=== PATIENT | male | born 1945 | race Hispanic/Latino ===

== ENCOUNTER 2018-11-08 20:10 | Emergency (ER) | payer MEDICARE ==
[~2018-11-08] VITALS: Ht 175.3 cm; Wt 105.7 kg
--- OUTSIDE RECORDS SUMMARY | 2018-11-08 20:13 | XMS REPORT | Clinical Summary ---
Author Author [facility] Organization [facility] Address Unknown Phone Unavailable Care Team Providers Care Strickler Attendant Name Role Phone Asked, No Pcp PCP Unavailable Allergies Not on File Medications Not on file Active Problems Not on file Social History Date Tobacco Use Types Packs/Day Years Used Never Assessed Sex Assigned at Date Recorded Not on file Industry Job Start Date Occupation Not on file Not on file Not on file Travel End Travel History Travel Start No recent travel history available. Last Filed Vital Signs Not on file Plan of Treatment Health Maintenance Due Date Last Done Comments COLONOSCOPY SCREENING 1995 SHINGLES VACCINES (#1) 1995 65+ PNEUMOCOCCAL VACCINE 2010 (1 of 2 - PCV13) INFLUENZA VACCINE 11/27/2018 Results Not on fileafter 11/07/2017 Insurance Type Payer Benefit Subscriber ID Effective Phone Address Plan / Dates Group HMO [employer] MEDICARE A[employer]NA xxxxxxxx [id number] MEDICARE resent HMO/PPO [facility] Advance Directives Patient has advance care planning documents on file. For more information, [place] contact: Denis Pascual [address] [place] [address]
--- OUTSIDE RECORDS SUMMARY | 2018-11-08 20:13 | XMS REPORT | Summary of Care ---
Author Author DARREN TEIXEIRA M.D. Organization Unknown Address [facility] Phone Unavailable Care Team Providers Care In Tube Conversion Technician Name Role Phone DARREN TEIXEIRA M.D. 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 Medications Name Dates Details Ibuprofen TABS Active Allergies and Adverse Reactions Name Dates Details No Known Drug Allergies (Allergy) Status: Active Past Medical History Name Dates Details History of Arthritis (V13.4) Status: Resolved History of edema (V13.89, Z87.898) Status: Resolved History of Gastric ulcer (531.90, K25.9) Status: Resolved 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, 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 Procedures Procedure Dates Details NM Bone scan 3 phase 99655 Date: 17-Jun-2017 History of Appendectomy Completed Immunization Name Dates Details Immunizations not documented Family History Name Dates Details Family history of Arthritis (V17.7) Comments: Family History Status: Active Name Dates Details Family history of Carcinoma Of The Pancreas Status: Active Name Dates Details Family history of Benign Prostatic Hypertrophy Status: Active Social History Name Dates Details Unknown if ever smoked Vital Signs Date Test Result Details No Known Vitals to report Results Date Description Value Details Results not documented Plan of Care Name Dates Details Planned Observations NM Bone scan 3 phase 24146 On: 17-Jun-2017 Intent Planned Goals not documented Interventions Provided Labs/Procedures/Imaging* [U] XRAY KNEE 3 VWS RIGHT 32630; Done: 13 Jun 2017 Plan* Patient Education/Instructions: * Reassurance * Counseling Provided. * Orders: * Labs Check ESR and CRP. Triple phase bone scan medically necessary. RTC after testing completed. Instructions Name Dates Details Instructions not documented Encounters Appointment; STEPHON VENTURA M.D. Encounter Diagnosis: Problem not documented On: 01-May-2016 7:00 Appointment; DARREN TEIXEIRA M.D. Encounter Diagnosis: Problem not documented On: 06-Jun-2017 10:30 Appointment; DARREN TEIXEIRA M.D. Encounter Diagnosis: Problem not documented On: 13-Jun-2017 16:00
[2018-11-08] MEDS ORDERED: NAPROSYN500 MG PO (20:33)
[2018-11-08] MEDS ORDERED: KEFLEX500 MG PO (20:33)
--- NOTE | 2018-11-08 22:43 | Diagnostic Imaging Report ---
FINGER RT - [facility]OPD - 3 views HISTORY: Pain. COMPARISON: None available. FINDINGS: Bones: No acute displaced fracture. Osseous alignment is within normal limits. Joints: The joint spaces are well-maintained. Soft tissues: Focal soft tissue injury on the medial distal aspect of the third digit without underlying osseous abnormality. IMPRESSION: Focal soft tissue injury on the medial distal aspect of the third digit without underlying osseous abnormality. Signed by: Librado Willoughby DO on 11/08/2018 10:40 PM
== END 2018-11-08 21:44 | disposition home or self-care (01) ==
LOC: FSED 20:10
DX: S61.312A Laceration without foreign body of right middle finger with damage to nail, initial encounter (principal); W23.1XXA Caught, crushed, jammed, or pinched between stationary objects, initial encounter; Y99.0 Civilian activity done for income or pay
CPT/HCPCS: 99283

== ENCOUNTER 2021-08-21 10:40 | Emergency (ER) | payer MEDICARE, OTHER ==
[~2021-08-21] VITALS: Ht 175.3 cm; Wt 102.1 kg
[~2021-08-21 10:40] MED LIST: KEFLEX500 MG PO; NAPROSYN500 MG PO
[2021-08-21] MEDS ORDERED: ULTRAM 50MG50 MG PO (12:45)
== END 2021-08-21 12:59 | disposition home or self-care (01) ==
LOC: FSED 10:47
DX: R07.89 Other chest pain (principal); S23.41XA Sprain of ribs, initial encounter; X50.1XXA Overexertion from prolonged static or awkward postures, initial encounter; Y92.89 Other specified places as the place of occurrence of the external cause
CPT/HCPCS: 71101; 99283